=== PATIENT | male | born 1990 | race Caucasian/White ===

== ENCOUNTER → 2023-04-14 10:55 | Outpatient (BNVA) | payer OTHER, SELFPAY | PROVIDERS: PCP Internal Medicine; Visit Provider Psychiatry & Neurology Neurology ==

== ENCOUNTER → 2023-05-25 09:54 | Outpatient (REF) | payer OTHER, SELFPAY | LOC: HO.SL 09:54 | PROVIDERS: PCP Internal Medicine; Visit Provider Nurse Practitioner Family | DX: G47.10 Hypersomnia, unspecified (principal); R68.89 Other general symptoms and signs; R06.83 Snoring | CPT/HCPCS: 95806; 95810 ==

== ENCOUNTER → 2023-05-25 10:10 | Outpatient (BNV) | payer OTHER, SELFPAY | PROVIDERS: PCP Internal Medicine; Visit Provider Psychiatry & Neurology Neurology | DX: R06.83 Snoring (principal) | CPT/HCPCS: 95806 ==

== ENCOUNTER 2023-05-26 09:44 | Outpatient (REF) | payer OTHER, SELFPAY ==
[2023-05-26 10:00] LABS: MANUAL DIFF FLAG NO
[2023-05-26 10:10] LABS: Basophils Absolute Auto 0.1 X10*3/uL (0.0-0.2); Basophils Percent Auto 1.3 % (0-2); Eosinophils Absolute Auto 0.1 X10*3/uL (0.0-0.4); Eosinophils Percent Auto 1.8 % (0-4); Hematocrit 48.8 % (42.0-52.0); Hemoglobin 17.3 g/dl (14.0-18.0); Imm Gran Abs Auto 0.01 X10*3/uL (0.00-0.03); Imm Gran Pct Auto 0.2 % (0.0-0.4); Lymphocytes Absolute Auto 2.1 X10*3/uL (1.2-4.9); Lymphocytes Percent Auto 36.7 % (20-40); Mean Corpuscular HGB Conc 35.5 g/dl (31.0-36.0); Mean Corpuscular Hemoglobin 28.9 pg (27.0-33.0); Mean Corpuscular Volume 81.5 fL (80.0-98.0); Monocytes Absolute Auto 0.6 X10*3/uL (0.1-1.2); Monocytes Percent Auto 10.2 % (2-11); Neutrophils Absolute Auto 2.8 x10*3/uL (2.0-8.3); Neutrophils Percent Auto 49.8 % (45-73); Platelet Count 197 X10*3/uL (160-400); Red Blood Count 5.99 X10*6/uL (4.60-5.80); Red Cell Distribution Width 12.3 % (11.0-16.0); White Blood Count 5.6 X10*3/uL (4.8-10.8)
[2023-05-26 11:00] LABS: Alanine Aminotransferase 81 U/L (0-40); Albumin Level 4.4 g/dL (3.5-5.0); Alkaline Phosphatase 58 U/L (39-117); Anion Gap 12 (12-20); Aspartate Amino Transferase 35 U/L (5-37); Bilirubin Total 1.7 mg/dL (0.0-1.0); Blood Urea Nitrogen 11 mg/dL (9-16); Calcium 9.5 mg/dL (8.4-10.2); Carbon Dioxide 25 mmol/L (22-29); Chloride 108 mmol/L (96-108); Estimated Glomerular Filt Rate > 60; Glucose Random 96 mg/dL (60-115); Potassium 4.2 mmol/L (3.3-5.1); Sodium 141 mmol/L (135-145); Total Protein 7.6 g/dL (6.5-8.0)
[2023-05-26 11:03] LABS: TSH reflex Free T4 1.26 uIU/mL (0.32-4.0)
[2023-05-26 11:25] LABS: Folate 13.1 ng/mL (> or = 4.0); Vitamin B12 517 pg/mL (200-900)
[2023-05-30 15:04] LABS: Vitamin D 25-OH, D2 <4 ng/mL; Vitamin D 25-OH, D3 23 ng/mL; Vitamin D 25-OH, Total 23 ng/mL (30-100)
== END 2023-05-26 09:45 | disposition home or self-care (01) ==
LOC: HO.LAB 09:44
PROVIDERS: PCP Internal Medicine; Visit Provider Nurse Practitioner Family
DX: R53.83 Other fatigue (principal); R68.89 Other general symptoms and signs; R41.3 Other amnesia; E55.9 Vitamin D deficiency, unspecified
CPT/HCPCS: 36415; 80053; 82306; 82607; 82746; 84443; 85025

== ENCOUNTER → 2023-06-23 20:30 | Outpatient (REF) | payer OTHER, SELFPAY | LOC: HO.SL 20:30 | PROVIDERS: Visit Provider Nurse Practitioner Family | DX: Z13.89 Encounter for screening for other disorder (principal) ==

== ENCOUNTER → 2023-06-23 21:17 | Outpatient (BNV) | payer OTHER, SELFPAY | PROVIDERS: PCP Internal Medicine; Visit Provider Psychiatry & Neurology Neurology | DX: R06.83 Snoring (principal) | CPT/HCPCS: 95810 ==

== ENCOUNTER 2023-07-05 07:21 | Outpatient (REF) | payer OTHER, SELFPAY ==
--- NOTE | ~2023-07-05 | MR_ITS ---
EXAMINATION: MR BRAIN WITHOUT CONTRAST CLINICAL INFORMATION: Memory issues. COMPARISON: None. TECHNIQUE: Multiplanar, multisequence imaging of the brain was performed without contrast. FINDINGS: No diffusion abnormalities are identified to suggest an acute or subacute infarct. The ventricles are normal in size. No mass effect or midline shift is seen. No brain parenchymal signal abnormality is noted. No extra-axial fluid collections are seen. The brainstem and cerebellum are normal. The gradient refocused acquisition is normal. Incidental 8 mm pineal cyst noted. The craniovertebral junction, marrow signal, and midline structures are normal. The major intracranial flow voids at the level of the [place] are preserved. The dural venous sinus flow voids are maintained. The mastoid air cells are well aerated. There is complete mucosal opacification of the left sphenoid sinus. The remaining paranasal sinuses are fairly well aerated. Small retention cyst and mild mucosal thickening also visible along the floor of the right maxillary antrum. Incidental small retention cyst noted along the nasopharyngeal roof on the left side. MR/MR head/brain wo con IMPRESSION: No acute intracranial process. Normal MRI of the brain. Severe left sphenoid sinus mucosal disease. Given this isolated finding and relatively normal appearance of the remaining paranasal sinuses, recommend follow-up ENT evaluation.
== END 2023-07-05 07:22 | disposition home or self-care (01) ==
LOC: HO.MRI 07:21
PROVIDERS: PCP Internal Medicine; Visit Provider Nurse Practitioner Family
DX: R41.3 Other amnesia (principal); R68.89 Other general symptoms and signs
CPT/HCPCS: 70551

== ENCOUNTER 2023-09-13 13:30 | Outpatient (AMB) | payer BC, SELFPAY ==
[2023-09-13 13:30] VITALS: BP 132/88; PULSE 80; O2SAT 97; BMI 34.8
--- NOTE | 2023-09-13 13:30 | MHC.OFFVIS ---
Intake Vital Signs 09/13/23 13:30 Height 5 ft 10 in Weight 242 lb 6 oz BMI 34.8 BP 132/88 Blood Pressure Location Lt brachial Position Sitting Pulse 80 Pulse Source Pulse Oximeter Pulse Oximetry (%) 97 Oxygen Delivery Method Room Air Intake Visit Reasons: 2m follow up MEMORY DEFICITS-LVM Allergies No Known Allergies Allergy (Verified 09/13/23 13:32) HPI HPI Comments History of Present Illness Details 33 y/o male patient presents for follow up of short term memory loss and forgetfulness. Pt reports he switched the work schedule from overnight to 2nd shift, from 3 to 11 pm. Now his sleep schedule is from 11:45 to 6-7 am. He feels less tired and cognitive function has little bit improved. The sleep study result was mild degree of sleep apnea. The AHI was 6/hr and oxygen [place] was 90%. The lab result was vitamin D deficiency, and started Vitamin D3 supplement. The brain MRI result was normal. No acute intracranial process. Normal MRI of the brain. Severe left sphenoid sinus mucosal disease. Given this isolated finding and relatively normal appearance of the remaining paranasal sinuses, recommend follow-up ENT evaluation. [facility] Surgical History H/O circumcision Family History Mother Diabetes Social History Household Members: Significant Other Housing: House Alcohol intake: current Alcohol intake frequency: a few times a month Patient Tobacco Use Status: Never used Tobacco Current occupational status: employed Current occupation: [employer] Review of Systems Const All systems reviewed & are unremarkable except as noted in HPI and below ENT Reports Normal hearing present Neuro Reports Normal hearing present Physical Exam Vital Signs: Last Vital Signs Pulse 80 09/13/23 13:30 BP 132/88 09/13/23 13:30 Pulse Ox 97 09/13/23 13:30 Oxygen Delivery Method Room Air 09/13/23 13:30 BMI result Body Mass Index 34.8 Const General: cooperative and healthy appearing Nutritional Appearance: obese Orientation/consciousness: patient oriented x3 HEENT Throat: Yes other (mallampati grade 3) Neck Neck: Yes full ROM and Yes supple Resp Effort & Inspection: normal respiratory effort and able to speak in complete sentences Neuro General: patient oriented x3, gait normal and moves all extremities Cranial nerves: Yes Bilaterally intact EOM present, Yes Normal facial strength present, Yes Midline tongue present, Yes Symmetric palate elevation present, Yes Normal hearing present, Yes Ability to bilaterally rotate head present and Yes Ability to bilaterally elevate shoulders present Cognition (Neuro): normal cognition Gait exam (Neuro): Normal gait present Motor exam (neuro): 5/5 motor strength present throughout, Pronator motor function not present and no tremor noted Deep tendon reflexes (DTR's): Rt Biceps (C5, C6): 2+, Left biceps reflex intensity grade: 2+, Right brachioradialis reflex intensity grade: 2+, Left brachioradialis reflex intensity grade: 2+ and Right patellar reflex intensity grade: 2+ Coordination: [id number] test normal and [id number] test normal Psych Appearance: grossly normal Mental Status: mental status grossly normal Speech and movement: Normal speech and movement present Affect: normal affect Attitude: cooperative Assessment & Plan Assessment & Plan (1) Short-term memory loss: Code(s): R41.3 - Other amnesia (2) Forgetfulness: Code(s): R68.89 - Other general symptoms and signs (3) Snoring: Code(s): R06.83 - Snoring (4) Sleep apnea: Comment: Mild degree of sleep apnea. AHI was 6/hr, oxygen [place] was 90% Code(s): G47.30 - Sleep apnea, unspecified Plan Wt reduction advised, 10% of body wt reduction advised until next year and will repeat sleep study. Refer patient to ENT for evaluation of left sphenoid sinus mucosal disease. Continue to take vitamin D supplement. Coding Level of Care Code Est Pt Level 3 (03682) Diagnoses Short-term memory loss R41.3 Forgetfulness R68.89 Snoring R06.83 Sleep apnea G47.30
== END 2023-09-13 13:53 | disposition home or self-care (01) ==
PROVIDERS: PCP Internal Medicine; Visit Provider Nurse Practitioner Family
DX: R41.3 Other amnesia (principal); R68.89 Other general symptoms and signs; R06.83 Snoring; G47.30 Sleep apnea, unspecified
CPT/HCPCS: 99213

== ENCOUNTER → 2023-09-13 13:30 | Outpatient (BNVA) | payer BC, SELFPAY | PROVIDERS: PCP Internal Medicine; Visit Provider Nurse Practitioner Family | DX: R68.89 Other general symptoms and signs (principal); R41.3 Other amnesia; R53.83 Other fatigue; E55.9 Vitamin D deficiency, unspecified ==

== ENCOUNTER → 2024-03-03 15:08 | Outpatient (BNVA) | payer SELFPAY | PROVIDERS: PCP Internal Medicine; Visit Provider Physician Assistant | DX: Z02.79 Encounter for issue of other medical certificate (principal) ==